=== PATIENT | female | born 1985 | race American Indian/Alaskan Native ===

== ENCOUNTER 2018-02-02 14:04 | Emergency (ER) | payer SELFPAY ==
[2018-02-02 14:28] VITALS: BP 124/76
[2018-02-02 15:30] LABS: Bilirubin,Urine NEG (Negative); Blood,Urine SM (Negative); Color,Urine Straw (Yellow); Mucus,Urine FEW /HPF; Protein,Urine <15 mg/dL mg/dL (Negative); Urobilinogen,Urine < 2.0 mg/dL (<2.0); WBC,Urine < 1.0 /HPF (0.0-6.0)
[2018-02-02 15:31] LABS: HCG Qualitative,Urine Negative (Negative)
== END 2018-02-02 15:40 | disposition left against medical advice (07) ==
LOC: ED 14:04
DX: M54.9 Dorsalgia, unspecified (principal); Z53.21 Procedure and treatment not carried out due to patient leaving prior to being seen by health care provider
CPT/HCPCS: 81001; 81025

== ENCOUNTER 2018-04-03 10:47 | Emergency (ER) | payer OTHER ==
[2018-04-03 12:25] LABS: Bilirubin,Urine NEG (Negative); Blood,Urine NEG (Negative); Color,Urine Yellow (Yellow); Mucus,Urine FEW /HPF; Protein,Urine <15 mg/dL mg/dL (Negative); Urobilinogen,Urine < 2.0 mg/dL (<2.0)
[2018-04-03 12:27] LABS: HCG Qualitative,Urine Negative (Negative); WBC,Urine < 1.0 /HPF (0.0-6.0)
[2018-04-03] MEDS ORDERED: BENTYL IM ONE (12:40)
[2018-04-03] MEDS ORDERED: ZOFRAN ODT PO ONE (12:40)
[2018-04-03] MEDS ORDERED: PEPCID PO ONE (12:40)
--- NOTE | 2018-04-03 12:43 | Emergency Department Report ---
Blank Doc - Documentation Documentation: Patient is a 32-year-old asthmatic female coming in with one day of nausea and diarrhea. Patient states she's had 3-4 large loose stools. Patient states she has some crampy abdominal pain and a burning sensation in epigastrium. Patient denies any actual vomiting. Patient denies fever chills cough congestion body aches or dysuria at this time. Patient will go to a treatment room 1 get meds for symptomatic relief and x-ray be done. Be
--- NOTE | 2018-04-03 14:08 | XRay Report ---
ABDOMINAL SERIES: History: Epigastric pain, nausea, vomiting, diarrhea. Erect chest film shows no acute or significant changes involving the heart or lung grijalva. There is no evidence of free air beneath the diaphragms. The gas pattern within the abdomen is unremarkable. There is no evidence of bowel dilatation, significant air-fluid levels, or masses. Organ shadows are unremarkable. Bilateral Essure devices are noted in the pelvis. IMPRESSION: Abdominal series within normal limits.
--- NOTE | 2018-04-03 14:15 | Emergency Department Report ---
ED Abdominal Pain HPI - General Chief Complaint: Abdominal Pain Stated Complaint: ABDOMINAL PAIN Time Seen by Provider: 04/03/18 12:37 Source: patient Mode of arrival: Ambulatory Limitations: No Limitations - History of Present Illness Initial Comments: Patient is a 32-year-old asthmatic female coming in with one day of nausea and diarrhea. Patient states she's had 3-4 large loose stools. Patient states she has some crampy abdominal pain and a burning sensation in epigastrium. Patient denies any actual vomiting. Patient denies fever chills cough congestion body aches or dysuria at this time. MD Complaint: abdominal pain Severity scale (0 -10): 5 Quality: cramping, aching Improves With: nothing Worsens With: nothing Associated Symptoms: nausea, diarrhea. denies: vomiting, fever, chills, constipation, dysuria, hematemesis, hematochezia, melena, hematuria, anorexia - Related Data Previous Rx's Medication Instructions Recorded Last Taken Type Cetirizine HCl [ZyrTEC] 10 mg PO ONCE #7 capsule 01/31/16 Unknown Rx Ciprofloxacin HCl [Ciprofloxacin 500 mg PO BID #14 tablet 01/31/16 Unknown Rx TAB] Dicyclomine [Bentyl] 10 mg PO QID #15 capsule 04/03/18 Unknown Rx Diphenoxylate/Atropine [Lomotil] 1 tab PO Q4H PRN #10 tablet 04/03/18 Unknown Rx Ondansetron [Zofran Odt] 4 mg PO Q8HR PRN #10 tab.rapdis 04/03/18 Unknown Rx Allergies Allergy/AdvReac Type Severity Reaction Status Date / Time codeine Allergy Hives Verified 04/03/18 11:02 ED Review of Systems ROS: Stated complaint: ABDOMINAL PAIN Other details as noted in HPI Comment: All other systems reviewed and negative ED Past Medical Hx - Past Medical History Previous Medical History?: No - Surgical History Additional Surgical History: hemorrhoidectomy - Social History Smoking Status: Current Some Day Smoker Substance Use Type: Alcohol - Medications Home Medications: Home Medications Medication Instructions Recorded Confirmed Last Taken Type Cetirizine HCl [ZyrTEC] 10 mg PO ONCE #7 capsule 01/31/16 Unknown Rx Ciprofloxacin HCl [Ciprofloxacin 500 mg PO BID #14 tablet 01/31/16 Unknown Rx TAB] Dicyclomine [Bentyl] 10 mg PO QID #15 capsule 04/03/18 Unknown Rx Diphenoxylate/Atropine [Lomotil] 1 tab PO Q4H PRN #10 tablet 04/03/18 Unknown Rx Ondansetron [Zofran Odt] 4 mg PO Q8HR PRN #10 tab.rapdis 04/03/18 Unknown Rx ED Physical Exam - General Limitations: No Limitations General appearance: alert, in no apparent distress - Head Head exam: Present: atraumatic, normocephalic - Eye Eye exam: Present: normal appearance - ENT ENT exam: Present: mucous membranes moist - Neck Neck exam: Present: normal inspection - Respiratory Respiratory exam: Present: normal lung sounds bilaterally. Absent: respiratory distress, wheezes, rales, rhonchi - Cardiovascular Cardiovascular Exam: Present: regular rate, normal rhythm. Absent: systolic murmur, diastolic murmur, rubs, gallop - GI/Abdominal GI/Abdominal exam: Present: soft, tenderness (mild epigastric tenderness), normal bowel sounds. Absent: distended, guarding, rebound - Extremities Exam Extremities exam: Present: normal inspection - Back Exam Back exam: Present: normal inspection - Neurological Exam Neurological exam: Present: alert, oriented X3 - Psychiatric Psychiatric exam: Present: normal affect, normal mood - Skin Skin exam: Present: warm, dry, intact, normal color. Absent: rash ED Course Vital Signs 04/03/18 11:02 Temperature 98.7 F Pulse Rate 86 Respiratory 17 Rate Blood Pressure 131/96 O2 Sat by Pulse 100 Oximetry ED Medical Decision Making - Medical Decision Making Patient received meds for symptomatically relief and is feeling much improved. Her abdominal x-ray shows no acute process Critical care attestation.: If time is entered above; I have spent that time in minutes in the direct care of this critically ill patient, excluding procedure time. ED Disposition Clinical Impression: Viral gastroenteritis Disposition: DC-01 TO HOME OR SELFCARE Is pt being admited?: No Does the pt Need Aspirin: No Condition: Stable Instructions: Gastroenteritis (ED) Referrals: PRIMARY CARE, [Primary Care Provider] - 3-5 Days
[2018-04-03 14:24] VITALS: BP 111/80
== END 2018-04-03 14:25 | disposition home or self-care (01) ==
LOC: ED 10:47
DX: A08.4 Viral intestinal infection, unspecified (principal); Z88.5 Allergy status to narcotic agent; F17.200 Nicotine dependence, unspecified, uncomplicated
CPT/HCPCS: 74022; 81001; 81025; 96372; 99284; J0500; Q0162

== ENCOUNTER 2019-07-13 07:33 | Emergency (ER) | payer SELFPAY ==
[2019-07-13 07:46] VITALS: BP 147/89
[2019-07-13 08:13] LABS: Bacteria,Urine 1+ /HPF (Negative); Bilirubin,Urine NEG (Negative); Blood,Urine NEG (Negative); Color,Urine Yellow (Yellow); Mucus,Urine 1+ /HPF; Protein,Urine <15 mg/dL mg/dL (Negative); Urobilinogen,Urine < 2.0 mg/dL (<2.0)
[2019-07-13 08:15] LABS: HCG Qualitative,Urine Negative (Negative)
[2019-07-13] MEDS ORDERED: AZITHROMYCIN 250 MG TAB PO STA (09:49)
[2019-07-13] MEDS ORDERED: LIDOCAINE-MPF (1%) 10 MG/1 ML VIAL 5 ML INFILTRATI ONE (09:49)
--- NOTE | 2019-07-13 09:55 | Emergency Department Report ---
ED Female HPI - General Chief complaint: Urogenital-Female Stated complaint: VAGINAL IRRITATION/DISCHARGE Time Seen by Provider: 07/13/19 08:18 Source: patient Mode of arrival: Ambulatory Limitations: No Limitations - History of Present Illness Initial comments: 33-year-old -[place] female presented by department complaining of a vaginal discharge with itching which she thought was yeast, but did not respond to them. Mom is that ankle, or as her normal use infections would do. She is stated that the begin to take a yellowish discharge, so she came to the ED to be evaluated. She is unsure of con incontinent and STD probe reports no abdominal pain, no vaginal bleeding, no fevers, chills, sweats MD Complaint: vaginal discharge, pelvic pain, possible STD -: week(s) Location: labia Severity: mild, moderate Quality: burning Consistency: constant Improves with: none Worsens with: none Are you Now?: No Associated Symptoms: vaginal discharge. denies: nausea/vomiting, fever/chills, loss of appetite, dysuria, hematuria - Related Data Previous Rx's Medication Instructions Recorded Last Taken Type Cetirizine HCl [ZyrTEC] 10 mg PO ONCE #7 capsule 01/31/16 Unknown Rx Ciprofloxacin HCl [Ciprofloxacin 500 mg PO BID #14 tablet 01/31/16 Unknown Rx TAB] Dicyclomine [Bentyl] 10 mg PO QID #15 capsule 04/03/18 Unknown Rx Diphenoxylate/Atropine [Lomotil] 1 tab PO Q4H PRN #10 tablet 04/03/18 Unknown Rx Ondansetron [Zofran Odt] 4 mg PO Q8HR PRN #10 tab.rapdis 04/03/18 Unknown Rx Cyclobenzaprine [Flexeril] 10 mg PO TID PRN #30 tablet 09/27/18 Unknown Rx Menthol/Camphor [[place] 1 applicatio TP QID PRN #1 09/27/18 Unknown Rx Ointment] oint...g. Naproxen [Naprosyn] 500 mg PO BID PRN #30 tablet 09/27/18 Unknown Rx Allergies Allergy/AdvReac Type Severity Reaction Status Date / Time codeine Allergy Hives Verified 07/13/19 07:44 ED Review of Systems ROS: Stated complaint: VAGINAL IRRITATION/DISCHARGE Other details as noted in HPI Comment: All other systems reviewed and negative ED Past Medical Hx - Past Medical History Previous Medical History?: No - Surgical History Past Surgical History?: No Additional Surgical History: hemorrhoidectomy - Social History Smoking Status: Never Smoker Substance Use Type: Alcohol, Marijuana - Medications Home Medications: Home Medications Medication Instructions Recorded Confirmed Last Taken Type Cetirizine HCl [ZyrTEC] 10 mg PO ONCE #7 capsule 01/31/16 Unknown Rx Ciprofloxacin HCl [Ciprofloxacin 500 mg PO BID #14 tablet 01/31/16 Unknown Rx TAB] Dicyclomine [Bentyl] 10 mg PO QID #15 capsule 04/03/18 Unknown Rx Diphenoxylate/Atropine [Lomotil] 1 tab PO Q4H PRN #10 tablet 04/03/18 Unknown Rx Ondansetron [Zofran Odt] 4 mg PO Q8HR PRN #10 tab.rapdis 04/03/18 Unknown Rx Cyclobenzaprine [Flexeril] 10 mg PO TID PRN #30 tablet 09/27/18 Unknown Rx Menthol/Camphor [[place] 1 applicatio TP QID PRN #1 09/27/18 Unknown Rx Ointment] oint...g. Naproxen [Naprosyn] 500 mg PO BID PRN #30 tablet 09/27/18 Unknown Rx ED Physical Exam - General Limitations: No Limitations General appearance: alert, in no apparent distress - Head Head exam: Present: atraumatic, normocephalic - Eye Eye exam: Present: normal appearance, PERRL, EOMI Pupils: Present: normal accommodation - ENT ENT exam: Present: mucous membranes moist - Neck Neck exam: Present: normal inspection - Respiratory Respiratory exam: Present: normal lung sounds bilaterally. Absent: respiratory distress, wheezes, rales, accessory muscle use - Cardiovascular Cardiovascular Exam: Present: regular rate, normal rhythm. Absent: systolic murmur, diastolic murmur, rubs, gallop - GI/Abdominal GI/Abdominal exam: Present: soft, normal bowel sounds - External exam: Present: erythema Speculum exam: Present: erythema, vaginal discharge, cervical discharge. Absent: vaginal bleeding, foreign body Bi-manual exam: Present: normal bi-manual exam - Extremities Exam Extremities exam: Present: normal inspection - Back Exam Back exam: Present: normal inspection - Neurological Exam Neurological exam: Present: alert, oriented X3 - Psychiatric Psychiatric exam: Present: normal affect, normal mood - Skin Skin exam: Present: warm, dry, intact, normal color. Absent: rash ED Course Vital Signs 07/13/19 07:45 Temperature 98.5 F Pulse Rate 113 H Respiratory 16 Rate Blood Pressure 147/89 [Right] O2 Sat by Pulse 100 Oximetry Critical care attestation.: If time is entered above; I have spent that time in minutes in the direct care of this critically ill patient, excluding procedure time. ED Disposition Clinical Impression: Vaginal discharge Disposition: DC-01 TO HOME OR SELFCARE Is pt being admited?: No Does the pt Need Aspirin: No Condition: Stable Instructions: Vulvovaginal Candidiasis (ED), Trichomoniasis (ED), Chlamydia Infection (ED), Sexually Transmitted Diseases (ED), Safe Sex (ED) Referrals: [facility] [Provider Group] - 3-5 Days
== END 2019-07-13 10:27 | disposition home or self-care (01) ==
LOC: ED 07:33
DX: N89.8 Other specified noninflammatory disorders of vagina (principal); R10.2 Pelvic and perineal pain; F12.10 Cannabis abuse, uncomplicated; Z88.5 Allergy status to narcotic agent; Z98.890 Other specified postprocedural states; Z79.899 Other long term (current) drug therapy
CPT/HCPCS: 81001; 81025; 87210; 87591; 96372; 99284; J0696

== ENCOUNTER 2019-08-08 16:46 | Emergency (ER) | payer SELFPAY ==
[2019-08-08] MEDS ORDERED: ROCEPHIN IM STA (17:38)
[2019-08-08] MEDS ORDERED: XYLOCAINE 1% MPF 5 mL INFILTRATI ONE (17:38)
--- NOTE | 2019-08-08 17:43 | Emergency Department Report ---
ED Female HPI - General Chief complaint: Urogenital-Female Stated complaint: VAGINAL DISCOMFORT Time Seen by Provider: 08/08/19 17:35 Source: patient Mode of arrival: Ambulatory Limitations: No Limitations - History of Present Illness Initial comments: thinks her re infeected her with trich and wants to be treated. Denies pelvic pain or dysuria. Scant discharge. MD Complaint: possible STD -: Gradual Radiation: non-radiating Severity: mild Improves with: none Worsens with: none Associated Symptoms: vaginal discharge - Related Data Sexually active: Yes Previous Rx's Medication Instructions Recorded Last Taken Type Cetirizine HCl [ZyrTEC] 10 mg PO ONCE #7 capsule 01/31/16 Unknown Rx Ciprofloxacin HCl [Ciprofloxacin 500 mg PO BID #14 tablet 01/31/16 Unknown Rx TAB] Dicyclomine [Bentyl] 10 mg PO QID #15 capsule 04/03/18 Unknown Rx Diphenoxylate/Atropine [Lomotil] 1 tab PO Q4H PRN #10 tablet 04/03/18 Unknown Rx Ondansetron [Zofran Odt] 4 mg PO Q8HR PRN #10 tab.rapdis 04/03/18 Unknown Rx Cyclobenzaprine [Flexeril] 10 mg PO TID PRN #30 tablet 09/27/18 Unknown Rx Menthol/Camphor [[place] 1 applicatio TP QID PRN #1 09/27/18 Unknown Rx Ointment] oint...g. Naproxen [Naprosyn] 500 mg PO BID PRN #30 tablet 09/27/18 Unknown Rx Azithromycin [Zithromax TAB] 1,000 mg PO ONCE #2 tablet 08/08/19 Unknown Rx metroNIDAZOLE [Flagyl] 500 mg PO Q12HR #28 tab 08/08/19 Unknown Rx Allergies Allergy/AdvReac Type Severity Reaction Status Date / Time codeine Allergy Hives Verified 08/08/19 16:48 ED Review of Systems ROS: Stated complaint: VAGINAL DISCOMFORT Other details as noted in HPI Comment: All other systems reviewed and negative ED Past Medical Hx - Past Medical History Previous Medical History?: No - Surgical History Additional Surgical History: hemorrhoidectomy - Social History Smoking Status: Never Smoker Substance Use Type: Alcohol, Marijuana - Medications Home Medications: Home Medications Medication Instructions Recorded Confirmed Last Taken Type Cetirizine HCl [ZyrTEC] 10 mg PO ONCE #7 capsule 01/31/16 Unknown Rx Ciprofloxacin HCl [Ciprofloxacin 500 mg PO BID #14 tablet 01/31/16 Unknown Rx TAB] Dicyclomine [Bentyl] 10 mg PO QID #15 capsule 04/03/18 Unknown Rx Diphenoxylate/Atropine [Lomotil] 1 tab PO Q4H PRN #10 tablet 04/03/18 Unknown Rx Ondansetron [Zofran Odt] 4 mg PO Q8HR PRN #10 tab.rapdis 04/03/18 Unknown Rx Cyclobenzaprine [Flexeril] 10 mg PO TID PRN #30 tablet 09/27/18 Unknown Rx Menthol/Camphor [[place] 1 applicatio TP QID PRN #1 09/27/18 Unknown Rx Ointment] oint...g. Naproxen [Naprosyn] 500 mg PO BID PRN #30 tablet 09/27/18 Unknown Rx Azithromycin [Zithromax TAB] 1,000 mg PO ONCE #2 tablet 08/08/19 Unknown Rx metroNIDAZOLE [Flagyl] 500 mg PO Q12HR #28 tab 08/08/19 Unknown Rx ED Physical Exam - General Limitations: No Limitations General appearance: alert, in no apparent distress - Head Head exam: Present: atraumatic, normocephalic - Eye Eye exam: Present: normal appearance, EOMI - ENT ENT exam: Present: mucous membranes moist - Neck Neck exam: Present: normal inspection - Respiratory Respiratory exam: Present: normal lung sounds bilaterally. Absent: respiratory distress - Cardiovascular Cardiovascular Exam: Present: regular rate, normal rhythm. Absent: systolic murmur, diastolic murmur, rubs, gallop - GI/Abdominal GI/Abdominal exam: Present: soft, normal bowel sounds - Extremities Exam Extremities exam: Present: normal inspection, full ROM, normal capillary refill - Back Exam Back exam: Present: normal inspection. Absent: CVA tenderness (R), CVA tenderness (L), paraspinal tenderness, vertebral tenderness - Neurological Exam Neurological exam: Present: alert, oriented X3, CN II-XII intact, normal gait - Psychiatric Psychiatric exam: Present: normal affect, normal mood - Skin Skin exam: Present: warm, dry, intact, normal color. Absent: rash Critical care attestation.: If time is entered above; I have spent that time in minutes in the direct care of this critically ill patient, excluding procedure time. ED Disposition Clinical Impression: Possible exposure to STD, Vaginal discharge Disposition: TO HOME OR SELFCARE Is pt being admited?: No Does the pt Need Aspirin: No Condition: Stable Instructions: Safe Sex (ED), Sexually Transmitted Diseases (ED), Chlamydia Infection (ED) Referrals: [facility] [Provider Group] - 3-5 Days
[2019-08-08 17:44] VITALS: BP 125/81
== END 2019-08-08 17:55 | disposition home or self-care (01) ==
LOC: ED 16:46
DX: N89.8 Other specified noninflammatory disorders of vagina (principal); F12.10 Cannabis abuse, uncomplicated
CPT/HCPCS: 96372; 99281; J0696

== ENCOUNTER 2020-08-31 15:22 | Emergency (ER) | payer SELFPAY ==
[2020-08-31 16:20] VITALS: BP 139/82
--- NOTE | 2020-08-31 16:42 | Emergency Department Report ---
ED Lower Extremity HPI - General Chief Complaint: Extremity Injury, Lower Stated Complaint: KNEE RT PAINS LEG Time Seen by Provider: 08/31/20 16:35 Source: patient Mode of arrival: Ambulatory Limitations: No Limitations - History of Present Illness Initial Comments: The patient was evaluated in the emergency department for symptoms described in the history of present illness. He/she was evaluated in the context of the global COVID-19 pandemic, which necessitated consideration that the patient might be at risk for infection with the virus that causes COVID-19. Institutional protocols and algorithms that pertain to the evaluation of patients at risk for COVID-19 are in a state of rapid change based on information released by regulatory bodies including the CDC and federal and state organizations. These policies and algorithms were followed during the patient's care in the emergency department. Please note that these policies, procedures and recommendations changed on a rapid basis. 34-year-old -[place] female presents to the emergency room complaining of right knee pain status post fall 2 days ago. Patient states that at that time she had some swelling for couple days but that has improved. Patient states this Monday she decided to wear low heeled and has aggravated her knee again. Patient states that the ibuprofen does help with her knee. Patient has not followed up with any provider for this. Patient denies any past medical history has an allergy to codeine currently takes no meds on a daily basis. MD Complaint: knee injury Onset/Timin -: days(s) Injury: Knee: Right Type of Injury: blunt Place: home Severity scale (0 -10): 6 Improves With: NSAID Worsens With: movement Context: fall Associated Symptoms: able to partially bear weight - Related Data Previous Rx's Medication Instructions Recorded Last Taken Type Cetirizine HCl [ZyrTEC] 10 mg PO ONCE #7 capsule 01/31/16 Unknown Rx Ciprofloxacin HCl [Ciprofloxacin 500 mg PO BID #14 tablet 01/31/16 Unknown Rx TAB] Dicyclomine [Bentyl] 10 mg PO QID #15 capsule 04/03/18 Unknown Rx Diphenoxylate/Atropine [Lomotil] 1 tab PO Q4H PRN #10 tablet 04/03/18 Unknown Rx Ondansetron [Zofran Odt] 4 mg PO Q8HR PRN #10 tab.rapdis 04/03/18 Unknown Rx Cyclobenzaprine [Flexeril] 10 mg PO TID PRN #30 tablet 09/27/18 Unknown Rx Menthol/Camphor [[place] 1 applicatio TP QID PRN #1 09/27/18 Unknown Rx Ointment] oint...g. Azithromycin [Zithromax TAB] 1,000 mg PO ONCE #2 tablet 08/08/19 Unknown Rx metroNIDAZOLE [Flagyl] 500 mg PO Q12HR #28 tab 08/08/19 Unknown Rx Naproxen [Naprosyn] 500 mg PO BID PRN #30 tablet 08/31/20 Unknown Rx Allergies Allergy/AdvReac Type Severity Reaction Status Date / Time codeine Allergy Hives Verified 08/08/19 16:48 ED Review of Systems ROS: Stated complaint: KNEE RT PAINS LEG Other details as noted in HPI Comment: All other systems reviewed and negative ED Past Medical Hx - Past Medical History Previous Medical History?: No - Surgical History Past Surgical History?: Yes Additional Surgical History: hemorrhoidectomy - Social History Smoking Status: Never Smoker Substance Use Type: Marijuana - Medications Home Medications: Home Medications Medication Instructions Recorded Confirmed Last Taken Type Cetirizine HCl [ZyrTEC] 10 mg PO ONCE #7 capsule 01/31/16 Unknown Rx Ciprofloxacin HCl [Ciprofloxacin 500 mg PO BID #14 tablet 01/31/16 Unknown Rx TAB] Dicyclomine [Bentyl] 10 mg PO QID #15 capsule 04/03/18 Unknown Rx Diphenoxylate/Atropine [Lomotil] 1 tab PO Q4H PRN #10 tablet 04/03/18 Unknown Rx Ondansetron [Zofran Odt] 4 mg PO Q8HR PRN #10 tab.rapdis 04/03/18 Unknown Rx Cyclobenzaprine [Flexeril] 10 mg PO TID PRN #30 tablet 09/27/18 Unknown Rx Menthol/Camphor [[place] 1 applicatio TP QID PRN #1 09/27/18 Unknown Rx Ointment] oint...g. Azithromycin [Zithromax TAB] 1,000 mg PO ONCE #2 tablet 08/08/19 Unknown Rx metroNIDAZOLE [Flagyl] 500 mg PO Q12HR #28 tab 08/08/19 Unknown Rx Naproxen [Naprosyn] 500 mg PO BID PRN #30 tablet 08/31/20 Unknown Rx ED Physical Exam - General Limitations: No Limitations General appearance: alert, in no apparent distress - Head Head exam: Present: atraumatic, normocephalic - Eye Eye exam: Present: normal appearance, PERRL - ENT ENT exam: Present: mucous membranes moist - Neck Neck exam: Present: normal inspection, full ROM - Respiratory Respiratory exam: Absent: accessory muscle use - Expanded Lower Extremity Exam Right Knee exam: Present: full ROM, tenderness. Absent: swelling Lower Leg exam: Present: normal inspection, full ROM Ankle exam: Present: normal inspection, full ROM Neuro vascular tendon exam: Present: no vascular compromise Gait: Positive: observed and limited by pain - Neurological Exam Neurological exam: Present: alert, oriented X3 - Psychiatric Psychiatric exam: Present: normal affect, normal mood - Skin Skin exam: Present: warm, dry, intact, normal color. Absent: rash ED Course Vital Signs 08/31/20 16:18 Temperature 98.9 F Pulse Rate 76 Respiratory 18 Rate Blood Pressure 139/82 O2 Sat by Pulse 100 Oximetry ED Lower Extremity MDM - Radiology Data Radiology results: report reviewed Referring Physician:ANASTASIA BRAGAPatient Name:RUPAL COSTELLOPatient ID:[id number] of :[id number]:FemaleAccession:[id number] Date:[id number] Status:Finalized Findings [facility] [address] [place] [address] XRay Report Signed Patient: RUPAL COSTELLO MR#: [id number] : 1985 Acct:[id number] Age/Sex: 34 / F ADM Date: 08/31/20 Loc: ED Attending Dr: Ordering Physician: BEATRICE ULLOA Date of Service: 08/31/20 Procedure(s): XR knee 3V RT Accession Number(s): [id number] cc: BEATRICE ULLOA Fluoro Time In Minutes: RIGHT KNEE 3 VIEW(S) INDICATION / CLINICAL INFORMATION: Right knee injury COMPARISON: None available. FINDINGS: BONES / JOINT(S): No acute fracture or subluxation. No significant arthritis. There is a bipartite patella. SOFT TISSUES: No significant abnormality. ADDITIONAL FINDINGS: None. IMPRESSION: 1. No acute osseous abnormality. 2. Bipartite patella. Signer Name: Jay Boss MD Signed: 08/31/2020 5:27 PM Workstation Name: [id number] Transcribed By: SS Dictated By: JAY BOSS Electronically Authenticated By: JAY BOSS Signed Date/Time: 08/31/201726 DD/ 25 TD/TT: - Medical Decision Making 34-year-old -[place] female presents to the emergency room complaining of right knee pain status post fall 2 Saturdays ago. Patient states that at that time she had some swelling for couple days but that has improved. Patient states this Monday she decided to wear low heeled and has aggravated her knee again. Patient states that the ibuprofen does help with her knee. Patient has not followed up with any provider for this. Patient denies any past medical history has an allergy to codeine currently takes no meds on a daily basis. Critical care attestation.: If time is entered above; I have spent that time in minutes in the direct care of this critically ill patient, excluding procedure time. ED Disposition Clinical Impression: Knee pain, right Disposition: DC-01 TO HOME OR SELFCARE Is pt being admited?: No Does the pt Need Aspirin: No Condition: Stable Instructions: Acute Knee Pain, Adult Additional Instructions: X-ray is negative for any acute findings. As I discussed earlier you need to follow-up with a orthopedic provider as they may able to do further evaluation. Prescriptions: Naproxen [Naprosyn] 500 mg PO BID PRN #30 tablet PRN Reason: pain Referrals: NIRMAL ALFARO MD [Staff Physician] - 3-5 Days
--- NOTE | 2020-08-31 17:31 | XRay Report ---
RIGHT KNEE 3 VIEW(S) INDICATION / CLINICAL INFORMATION: Right knee injury COMPARISON: None available. FINDINGS: BONES / JOINT(S): No acute fracture or subluxation. No significant arthritis. There is a bipartite pa tella. SOFT TISSUES: No significant abnormality. ADDITIONAL FINDINGS: None. IMPRESSION: 1. No acute osseous abnormality. 2. Bipartite patella. Signer Name: Gregory Boss MD Signed: 08/31/2020 5:27 PM Workstation Name: [id number]
== END 2020-08-31 18:12 | disposition home or self-care (01) ==
LOC: ED 15:22
DX: M25.561 Pain in right knee (principal); Z79.899 Other long term (current) drug therapy; Z88.4 Allergy status to anesthetic agent
CPT/HCPCS: 99283

== ENCOUNTER 2020-12-22 18:55 | Emergency (ER) | payer BC ==
[2020-12-22 19:45] VITALS: BP 157/95
--- NOTE | 2020-12-22 19:48 | Event Note ---
ED Screening Note Date of service: 12/22/20 Time: 19:46 ED Screening Note: pt is a 35 y/o aaf who presents for abd pain 5/10 with n/v, malaise and reported fever, pt denies hx , symptoms are exacerbated by po intake, symptoms are relieved by nothing. This initial assessment/diagnostic orders/clinical plan/treatment(s) is/are subject to change based on patients health status, clinical progression and re- assessment by fellow clinical providers in the ED. Further treatment and workup at subsequent clinical providers discretion. Patient/guardian urged not to elope from the ED as their condition may be serious if not clinically assessed and managed. Initial orders include:
[2020-12-22 20:08] LABS: Basophils # (Auto) 0.1 K/mm3 (0.0-0.1); Basophils % (Auto) 0.8 % (0.0-1.8); Eosinophils # (Auto) 0.2 K/mm3 (0.0-0.4); Eosinophils % (Auto) 2.1 % (0.0-4.3); Hematocrit 30.5 % (30.3-42.9); Hemoglobin 9.7 gm/dl (10.1-14.3); Lymphocytes # (Auto) 3.1 K/mm3 (1.2-5.4); Lymphocytes % (Auto) 43.3 % (13.4-35.0); Mean Corpuscular HGB Conc 32 % (30-34); Mean Corpuscular Volume 82 fl (79-97); Monocytes # (Auto) 0.5 K/mm3 (0.0-0.8); Monocytes % (Auto) 6.5 % (0.0-7.3); Platelet Count 356 K/mm3 (140-440); Red Blood Count 3.72 M/mm3 (3.65-5.03); Red Cell Distribution Width 16.5 % (13.2-15.2)
[2020-12-22 20:30] LABS: Alanine Aminotransferase 12 units/L (7-56); BUN/Creatinine Ratio 11; Blood Urea Nitrogen 9 mg/dL (7-17); Calcium 8.8 mg/dL (8.4-10.2); Hemolysis Index 11
[2020-12-22 22:37] LABS: Bilirubin,Urine NEG (Negative); Blood,Urine NEG (Negative); Color,Urine Yellow (Yellow); Mucus,Urine FEW /HPF; Protein,Urine <15 mg/dL mg/dL (Negative); WBC,Urine < 1.0 /HPF (0.0-6.0)
[2020-12-22 22:39] LABS: HCG Qualitative,Urine Negative (Negative)
== END 2020-12-23 02:32 | disposition left against medical advice (07) ==
LOC: ED 18:55
DX: R10.10 Upper abdominal pain, unspecified (principal); Z53.21 Procedure and treatment not carried out due to patient leaving prior to being seen by health care provider
CPT/HCPCS: 36415; 80053; 81001; 81025; 83690; 85025

== ENCOUNTER 2021-10-02 13:00 | Emergency (ER) | payer BC ==
--- NOTE | 2021-10-02 14:16 | Emergency Department Report ---
ED Chest Pain HPI - General Chief Complaint: Chest Pain Stated Complaint: CHEST PAIN Time Seen by Provider: 10/02/21 13:29 Source: patient Mode of arrival: Ambulatory Limitations: No Limitations - History of Present Illness Initial Comments: Patient is a 35-year-old female presents emergency room with complaints of substernal chest pain that began 2 days ago. She states her pain is worse with certain movements. She denies any fever, cough, nausea, vomiting, diarrhea, leg swelling, calf pain, shortness of breath, pleuritic pain. She denies any recent travel, recent surgery, hormone use. No past medical history. Allergy to codeine. She states that she has not smoked in 18 years. She denies any family cardiac history under the age of 60. Severity scale (0 -10): 5 - Related Data Previous Rx's Medication Instructions Recorded Last Taken Type Cetirizine HCl [ZyrTEC] 10 mg PO ONCE #7 capsule 01/31/16 Unknown Rx Ciprofloxacin HCl [Ciprofloxacin 500 mg PO BID #14 tablet 01/31/16 Unknown Rx TAB] Dicyclomine [Bentyl] 10 mg PO QID #15 capsule 04/03/18 Unknown Rx Diphenoxylate/Atropine [Lomotil] 1 tab PO Q4H PRN #10 tablet 04/03/18 Unknown Rx Ondansetron [Zofran Odt] 4 mg PO Q8HR PRN #10 tab.rapdis 04/03/18 Unknown Rx Cyclobenzaprine [Flexeril] 10 mg PO TID PRN #30 tablet 09/27/18 Unknown Rx Menthol/Camphor [[place] 1 applicatio TP QID PRN #1 09/27/18 Unknown Rx Ointment] oint...g. Azithromycin [Zithromax TAB] 1,000 mg PO ONCE #2 tablet 08/08/19 Unknown Rx metroNIDAZOLE [Flagyl] 500 mg PO Q12HR #28 tab 08/08/19 Unknown Rx Naproxen [Naprosyn] 500 mg PO BID PRN #30 tablet 08/31/20 Unknown Rx Naproxen 375 mg PO BID PRN #14 tablet 10/02/21 Unknown Rx methOCARBAMOL [Robaxin TAB] 500 mg PO BID PRN #14 tab 10/02/21 Unknown Rx Allergies Allergy/AdvReac Type Severity Reaction Status Date / Time codeine Allergy Hives Verified 08/08/19 16:48 Heart Score - HEART Score History: Slightly suspicious EKG: Normal Age: < 45 Risk factors: 1-2 risk factors Troponin: < normal limit HEART Score: 1 - EKG Read Time Time EKG Completed: 13:10 EKG Read Time: 13:35 ED Review of Systems ROS: Stated complaint: CHEST PAIN Other details as noted in HPI Comment: All other systems reviewed and negative ED Past Medical Hx - Past Medical History Previous Medical History?: No - Surgical History Past Surgical History?: Yes Additional Surgical History: hemorrhoidectomy - Social History Smoking Status: Never Smoker Substance Use Type: Alcohol - Medications Home Medications: Home Medications Medication Instructions Recorded Confirmed Last Taken Type Cetirizine HCl [ZyrTEC] 10 mg PO ONCE #7 capsule 01/31/16 Unknown Rx Ciprofloxacin HCl [Ciprofloxacin 500 mg PO BID #14 tablet 01/31/16 Unknown Rx TAB] Dicyclomine [Bentyl] 10 mg PO QID #15 capsule 04/03/18 Unknown Rx Diphenoxylate/Atropine [Lomotil] 1 tab PO Q4H PRN #10 tablet 04/03/18 Unknown Rx Ondansetron [Zofran Odt] 4 mg PO Q8HR PRN #10 tab.rapdis 04/03/18 Unknown Rx Cyclobenzaprine [Flexeril] 10 mg PO TID PRN #30 tablet 09/27/18 Unknown Rx Menthol/Camphor [[place] 1 applicatio TP QID PRN #1 09/27/18 Unknown Rx Ointment] oint...g. Azithromycin [Zithromax TAB] 1,000 mg PO ONCE #2 tablet 08/08/19 Unknown Rx metroNIDAZOLE [Flagyl] 500 mg PO Q12HR #28 tab 08/08/19 Unknown Rx Naproxen [Naprosyn] 500 mg PO BID PRN #30 tablet 08/31/20 Unknown Rx Naproxen 375 mg PO BID PRN #14 tablet 10/02/21 Unknown Rx methOCARBAMOL [Robaxin TAB] 500 mg PO BID PRN #14 tab 10/02/21 Unknown Rx ED Physical Exam - General Limitations: No Limitations General appearance: alert, in no apparent distress - Head Head exam: Present: atraumatic, normocephalic - Eye Eye exam: Present: normal appearance - ENT ENT exam: Present: mucous membranes moist - Respiratory Respiratory exam: Present: normal lung sounds bilaterally, chest wall tenderness (mild mid sternal chest wall ttp, no crepitus, no deformity). Absent: respiratory distress, wheezes, rales, rhonchi, stridor, accessory muscle use, decreased breath sounds, prolonged expiratory - Cardiovascular Cardiovascular Exam: Present: regular rate, normal rhythm, normal heart sounds. Absent: systolic murmur, diastolic murmur, rubs, gallop - Neurological Exam Neurological exam: Present: alert, oriented X3 - Psychiatric Psychiatric exam: Present: normal affect, normal mood - Skin Skin exam: Present: warm, dry, intact ED Course Vital Signs 10/02/21 10/02/21 13:03 16:10 Temperature 98.8 F Pulse Rate 99 H 70 Respiratory 15 15 Rate Blood Pressure 152/91 Blood Pressure 118/86 [Right] O2 Sat by Pulse 100 100 Oximetry ED Medical Decision Making - Lab Data Result diagrams: 10/02/21 14:07 10/02/21 14:07 Lab Results 10/02/21 10/02/21 10/02/21 Range/Units 14:07 14:07 14:07 WBC 5.3 (4.5-11.0) K/mm3 RBC 3.95 (3.65-5.03) M/mm3 Hgb 9.8 L (10.1-14.3) gm/dl Hct 31.4 (30.3-42.9) % MCV 80 (79-97) fl MCH 25 L (28-32) pg MCHC 31 (30-34) % RDW 16.4 H (13.2-15.2) % Plt Count 439 (140-440) K/mm3 Lymph % (Auto) 34.0 (13.4-35.0) % [place] % (Auto) 9.0 H (0.0-7.3) % Eos % (Auto) 2.2 (0.0-4.3) % Baso % (Auto) 0.5 (0.0-1.8) % Lymph # (Auto) 1.8 (1.2-5.4) K/mm3 [place] # (Auto) 0.5 (0.0-0.8) K/mm3 Eos # (Auto) 0.1 (0.0-0.4) K/mm3 Baso # (Auto) 0.0 (0.0-0.1) K/mm3 Seg Neutrophils % 54.3 (40.0-70.0) % Seg Neutrophils # 2.9 (1.8-7.7) K/mm3 Sodium 143 (137-145) mmol/L Potassium 3.7 (3.6-5.0) mmol/L Chloride 105.3 (98-107) mmol/L Carbon Dioxide 26 (22-30) mmol/L Anion Gap 15 mmol/L BUN 8 (7-17) mg/dL Creatinine 0.7 (0.6-1.2) mg/dL Estimated GFR > 60 ml/min BUN/Creatinine Ratio 11 % Glucose 128 H (65-100) mg/dL Calcium 9.2 (8.4-10.2) mg/dL Total Bilirubin 0.30 (0.1-1.2) mg/dL AST 14 (5-40) units/L ALT 15 (7-56) units/L Alkaline Phosphatase 102 (35-129) units/L Troponin T < 0.010 (0.00-0.029) ng/mL Total Protein 6.9 (6.3-8.2) g/dL Albumin 3.8 L (3.9-5) g/dL Albumin/Globulin Ratio 1.2 % HCG, Qual Negative (Negative) Vital Signs 10/02/21 10/02/21 13:03 16:10 Temperature 98.8 F Pulse Rate 99 H 70 Respiratory 15 15 Rate Blood Pressure 152/91 Blood Pressure 118/86 [Right] O2 Sat by Pulse 100 100 Oximetry - EKG Data EKG shows normal: sinus rhythm, axis, intervals, QRS complexes, ST-T waves Rate: normal - EKG Data 10/02/21 14:17 probable left atrial enlargement - Radiology Data Radiology results: report reviewed Ordering Physician: BEATRICE GIBBS Date of Service: 10/02/21 Procedure(s): XR chest routine 2V Accession Number(s): [id number] cc: BEATRICE GIBBS Fluoro Time In Minutes: CHEST 2 VIEWS INDICATION / CLINICAL INFORMATION: Chest pain. COMPARISON: Chest x-ray on 04/03/2018 FINDINGS: SUPPORT DEVICES: None. HEART / MEDIASTINUM: No significant abnormality. LUNGS / PLEURA: No significant pulmonary or pleural abnormality. No pneumothorax. ADDITIONAL FINDINGS: No significant additional findings. IMPRESSION: 1. No acute findings. Signer Name: Eliazar Knight MD Signed: 10/02/2021 3:29 PM Workstation Name: [id number] Transcribed By: TATA Dictated By: Eliazar Knight MD Electronically Authenticated By: Eliazar Knight MD Signed Date/Time: 10/02/211528 DD/ 28 TD/TT: - Medical Decision Making Patient is a 35-year-old female presents emergency room with complaints of substernal chest pain that began 2 days ago. She states her pain is worse with certain movements. She denies any fever, cough, nausea, vomiting, diarrhea, leg swelling, calf pain, shortness of breath, pleuritic pain. She denies any recent travel, recent surgery, hormone use. No past medical history. Allergy to codeine. She states that she has not smoked in 18 years. She denies any family cardiac history under the age of 60. Vitals are stable. On exam:mild mid sternal chest wall ttp, no crepitus, no deformity. Labs are stable. Troponin is negative. EKG with probable left atrial enlargement, otherwise normal. Chest x-ray 1. No acute findings. Heart score is 1, low risk for cardiac event. Patient's pain is reproducible. PERC negative for PE, PE unlikely. advised pt please use medication as prescribed as needed. Follow-up with a primary care doctor. Follow-up with a coil machine operator. Return to emergency room for any new or worsening symptoms. Critical care attestation.: If time is entered above; I have spent that time in minutes in the direct care of this critically ill patient, excluding procedure time. ED Disposition Clinical Impression: Chest pain Qualifiers: Chest pain type: unspecified Qualified Code(s): R07.9 - Chest pain, unspecified Disposition: 01 HOME / SELF CARE / HOMELESS Is pt being admited?: No Does the pt Need Aspirin: No Condition: Stable Instructions: Nonspecific Chest Pain, Adult Additional Instructions: Using medication as prescribed as needed. Follow-up with a primary care doctor. Follow-up with a coil machine operator. Return to emergency room for any new or worsening symptoms. Prescriptions: Naproxen 375 mg PO BID PRN #14 tablet PRN Reason: pain methOCARBAMOL [Robaxin TAB] 500 mg PO BID PRN #14 tab PRN Reason: muscle spasm/pain Referrals: CELI,HUMAIRA [Other] - 3-5 Days CORDELL NGO MD [Staff Physician] - 3-5 Days Time of Disposition: 15:47 Print Language: INDONESIAN
[2021-10-02 14:29] LABS: Basophils % (Auto) 0.5 % (0.0-1.8); Eosinophils # (Auto) 0.1 K/mm3 (0.0-0.4); Eosinophils % (Auto) 2.2 % (0.0-4.3); Hematocrit 31.4 % (30.3-42.9); Hemoglobin 9.8 gm/dl (10.1-14.3); Lymphocytes # (Auto) 1.8 K/mm3 (1.2-5.4); Mean Corpuscular HGB Conc 31 % (30-34); Mean Corpuscular Volume 80 fl (79-97); Monocytes # (Auto) 0.5 K/mm3 (0.0-0.8); Platelet Count 439 K/mm3 (140-440); Red Blood Count 3.95 M/mm3 (3.65-5.03); Red Cell Distribution Width 16.4 % (13.2-15.2)
[2021-10-02 14:51] LABS: Alanine Aminotransferase 15 units/L (7-56); Albumin 3.8 g/dL (3.9-5); Blood Urea Nitrogen 8 mg/dL (7-17); Calcium 9.2 mg/dL (8.4-10.2); Hemolysis Index 0
[2021-10-02 15:01] LABS: BUN/Creatinine Ratio 11
--- NOTE | 2021-10-02 15:34 | XRay Report ---
CHEST 2 VIEWS INDICATION / CLINICAL INFORMATION: Chest pain. COMPARISON: Chest x-ray on 04/03/2018 FINDINGS: SUPPORT DEVICES: None. HEART / MEDIASTINUM: No significant abnormality. LUNGS / PLEURA: No significant pulmonary or pleural abnormality. No pneumothorax. ADDITIONAL FINDINGS: No significant additional findings. IMPRESSION: 1. No acute findings. Signer Name: Eliazar Knight MD Signed: 10/02/2021 3:29 PM Workstation Name: [id number]
[2021-10-02 16:11] VITALS: BP 118/86
--- NOTE | 2021-10-03 12:02 | Electrocardiograph Report ---
[facility] Test Date: 2021-10-02 Test Time: 13:10:48 Pat Name: RUPAL COSTELLO Department: Room: Gender: F [employer]: DENNIS : 1985 Requested By: MAGY MLAONE Order Number: [id number] Reading MD: Rickey Tapia Measurements Intervals [place] Rate: 93 P: 58 VA: 137 QRS: 29 QRSD: 80 T: 27 QT: 348 QTc: 434 Interpretive Statements Sinus rhythm Probable left atrial enlargement No previous ECG available for comparison Electronically Signed On 10-03-2021 12:02:39 EST by Rickey Tapia
== END 2021-10-02 16:10 | disposition home or self-care (01) ==
LOC: ED 13:00
DX: R07.9 Chest pain, unspecified (principal); F10.20 Alcohol dependence, uncomplicated; Z88.5 Allergy status to narcotic agent
CPT/HCPCS: 36415; 71046; 80053; 84484; 84703; 85025; 93005; 99283